=== PATIENT | female | born 1960 | race Caucasian/White ===

== ENCOUNTER → 2020-09-21 | Day surgery (SDC) | payer MEDICAID ==
[~2020-09-21] MED LIST: ALBU2.5V8 IH; CITA20TA6 PO; FOLI1TAB16 PO; HYDR-2145 PO; HYDR50TA9 PO; IV RINGERS,LACTATED 1000ML 1,000 ML IV SCH; LIDOCAINE 2% PF 5 ML VIAL. ONE; LORA10TA3 PO; NAPROXEN SODIUM PO; PHEN100C4 PO; PROPOFOL 10 MG/ML (20ML) VIAL. IV ONE; RANI150C PO
[2020-09-21 14:01] VITALS: BP 125/61
== END | disposition home or self-care (01) ==
LOC: ENDOS 11:15
PROVIDERS: ATTEND Internal Medicine Gastroenterology
DX: Z12.11 Encounter for screening for malignant neoplasm of colon (principal); K64.0 First degree hemorrhoids; K21.9 Gastro-esophageal reflux disease without esophagitis; M19.90 Unspecified osteoarthritis, unspecified site; E03.9 Hypothyroidism, unspecified; F32.9 Major depressive disorder, single episode, unspecified; Z20.822 Contact with and (suspected) exposure to COVID-19; Z86.010 Personal history of colon polyps; Z90.710 Acquired absence of both cervix and uterus; Z98.51 Tubal ligation status; Z98.890 Other specified postprocedural states; Z79.899 Other long term (current) drug therapy; Z85.828 Personal history of other malignant neoplasm of skin; Z88.1 Allergy status to other antibiotic agents
CPT/HCPCS: 45378; 87426; J2704